=== PATIENT | male | born 1930 | race Caucasian/White ===

== ENCOUNTER 2016-05-31 13:07 | Outpatient (CLI) | payer MEDICARE, BC ==
[2016-05-31 14:03] LABS: ALT (SGPT) 15 U/L (0-55); AST (SGOT) 15 U/L (5-34); Alkaline Phosphatase 92 U/L (40-150); Anion Gap 13 mmol/L (10-20); BUN (Urea Nitrogen) 18 mg/dL (8.4-25.7); Bilirubin, Total 1.6 mg/dL (0.2-1.2); Calc. Creatinine Clearance 0 mL/min (70-130); Calcium 9.2 mg/dL (7.8-10.44); Carbon Dioxide 26 mmol/L (23-31); Chloride 105 mmol/L (98-107); Estimated GFR-MDRD 79; Globulin 2.4 g/dL (2.4-3.5); LDL Cholesterol, Calculated 69 mg/dL; Protein, Total 6.6 g/dL (5.8-8.1)
[2016-05-31 18:11] LABS: #Basophils 0.1 thou/uL (0.0-0.2); #Eosinphils 0.2 thou/uL (0.0-0.7); #Lymphocytes 1.9 thou/uL (1.20-3.40); #Monocytes 0.8 thou/uL (0.11-0.59); #Neutrophils 6.9 thou/uL (1.40-6.50); %Basophils 1.3 % (0.0-1.0); %Eosinophils 2.1 % (0.0-10.0); %Monocytes 8.4 % (0.0-10.0); Hematocrit 42.2 % (42.0-52.0); Mean Platelet Volume 7.6 fL (7.4-10.4); Red Blood Cell (RBC) Count 4.76 mill/uL (4.70-6.10); White Blood Cell (WBC) Count 9.9 thou/uL (4.8-10.8)
[2016-05-31 19:42] LABS: Hemoglobin A1c 6.4 % (4.0-6.0)
== END 2016-05-31 13:08 | disposition home or self-care (01) ==
LOC: HPCALD 13:07
PROVIDERS: ATTEND Family Medicine
DX: E11.9 Type 2 diabetes mellitus without complications (principal); I10 Essential (primary) hypertension
CPT/HCPCS: 36415; 80053; 80061; 83036; 85025

== ENCOUNTER 2016-07-03 03:34 | Emergency (ER) | payer MEDICARE, BC ==
[2016-07-03] MEDS ORDERED: Ondansetron HCl/PF 4 MG/2 ML Vial ONE (03:59)
[2016-07-03] MEDS ORDERED: Famotidine 20 MG TAB ONE (03:59)
[2016-07-03] MEDS ORDERED: Famotidine In NaCl 20 mg/50 ml Premix Bag ONE (04:00)
[2016-07-03 04:05] LABS: #Basophils 0.1 thou/uL (0.0-0.2); #Eosinphils 0.1 thou/uL (0.0-0.7); #Lymphocytes 1.5 thou/uL (1.20-3.40); #Monocytes 0.9 thou/uL (0.11-0.59); #Neutrophils 13.4 thou/uL (1.40-6.50); %Basophils 0.8 % (0.0-1.0); %Eosinophils 0.4 % (0.0-10.0); %Monocytes 5.4 % (0.0-10.0); Hematocrit 43.5 % (42.0-52.0); Mean Platelet Volume 7.5 fL (7.4-10.4); White Blood Cell (WBC) Count 15.9 thou/uL (4.8-10.8)
[2016-07-03 04:20] LABS: ALT (SGPT) 13 U/L (0-55); AST (SGOT) 14 U/L (5-34); Alkaline Phosphatase 92 U/L (40-150); Anion Gap 15 mmol/L (10-20); BUN (Urea Nitrogen) 11 mg/dL (8.4-25.7); Bilirubin, Total 1.1 mg/dL (0.2-1.2); Calc. Creatinine Clearance 0 mL/min (70-130); Carbon Dioxide 24 mmol/L (23-31); Chloride 103 mmol/L (98-107); Estimated GFR-MDRD Greater than 90; Lipase 27 U/L (8-78); Protein, Total 7.2 g/dL (5.8-8.1)
[2016-07-03 04:28] LABS: Troponin I Less than 0.010 ng/mL (< 0.028)
[2016-07-03] MEDS ORDERED: Fentanyl 100 MCG/2 ML VIAL ONE ×2 (04:34→06:10)
[2016-07-03 05:57] LABS: Bilirubin Negative (Negative); Blood, Urine Trace (Negative); Glucose, Urine (Dipstick) 250 mg/dL (Negative); Ketone, Urine Negative (Negative); Nitrite Negative (Negative); Protein, Urine (Dipstick) Negative (Neg-Trace)
[2016-07-03] MEDS ORDERED: Piperacillin/Tazobactam 3.375 GM VIAL ONE (05:59)
[2016-07-03 06:00] LABS: Bacteria/HPF 1+ HPF (None Seen); RBC/HPF 0-3 HPF (0-3); Squamous Epithelial 0-3 HPF (0-3); WBC/HPF None Seen HPF (0-3)
[2016-07-03] MEDS ORDERED: Sodium Chloride 0.9% 100 ML ONE (06:00)
[2016-07-03] MEDS ORDERED: Iopamidol 370 76% 100 ML VIAL ONE (09:00)
--- NOTE | 2016-07-03 12:28 | CT ---
PRELIMINARY REPORT/[facility]/EMERGENCY AFTER HOURS PROCEDURE: EXAM: CT Abdomen and Pelvis With Intravenous Contrast. CLINICAL HISTORY: 86 years old, male; Pain; Abdominal pain; Generalized; Patient HX: Pt complains of generalized abdom inal pain with nausea and vomiting since 1999 yesterday. ; TECHNIQUE: Axial computed tomography images of the abdomen and pelvis with intravenous contrast. Coronal reformatted images were created and reviewed. CONTRAST: 93 mL of ISOVUE 370 administered intravenously. COMPARISON: No relevant prior studies available. FINDINGS: Small left pleural effusion. The lung bases otherwise appear essentially clear. Prominent coronary artery calcifications. Old/healed right lower rib fractures. 19 mm calcified gallstone within the gallbladder. Mild gallbladder wall thickening/edema. Gallbladder appears somewhat distended, transverse diameter of about 5 cm. No biliary tree dilation. Unremarkable appearance of the liver, spleen, kidneys, adrenal glands, and pancreas. No free air, ascites, or bowel distention. Prominent aortic vascular calcifications. No evidence for abdominal aortic aneurysm. Areas of nonspecific, predominantly linear calcifications in the central left mesentery. A few borderline prominent mesenteric lymph nodes, no prominent soft tissue mass or surrounding fibr otic reaction. CT appearance is not specific. 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 Findings related to carcinoid tumor or treated lymphoma probably less likely. Please correlate clini hero. Eventual comparison with any available prior exams will be helpful. No retroperitoneal adenopathy. CT pelvis: The appendix is visualized and appears normal. There are no CT findings to strongly suggest diverticulitis. No abnormal mass or fluid collection in the pelvis. 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 IMPRESSION: Cholelithiasis, with mild gallbladder distention and mild wall thickening/edema. No free air or bowel distention. No evidence for bowel obstruction. Normal appendix. No diverticulitis. Nonspecific calcifications in the central left mesentery. See above details/discussion. Small left pleural effusion. Other findings discussed above. Thank you for allowing us to participate in the care of your patient. Dictated and Authenticated by: Sunny Ho MD 07/03/2016 5:50 AM Central Time ([place] \T\ [place]) FINAL REPORT CT ABDOMEN AND PELVIS WITH CONTRAST: Date: 07/03/[address] of the abdomen and pelvis was performed for evaluation of generalized abdominal pain, naus ea, and vomiting. Axial slices were acquired after a bolus of IV contrast. No oral contrast was give n. Coronal reconstruction were then done. Comparison is made with a 08/20/15 CT done at this institu tion. FINDINGS: There is a small to medium size left pleural effusion present, which is a new finding. There is a li ttle compressive atelectasis of the lower lobes, but no lobar consolidation was seen. Dense coronary artery calcifications are evident as usual. There is no sign of pericardial fluid. The liver, spleen, pancreas, and adrenal glands are unremarkable in appearance. The gallbladder is d istended, measuring about 10.0 cm long and 5.0 cm wide. There is a large gallstone within it as usua l. The wall of the gallbladder seems edematous and thickened. The possibility of cholecystitis is ra ised. These findings are different than what was seen in 2016. The kidneys showed no mass or hydrone phrosis. Calcification seen in the abdomen aorta, but there is no aneurysm. The bowel is nondistended with no sign of obstruction. A few scattered diverticula are present witho ut findings of diverticulitis. There is no free air or free fluid. There is a curious area of calcif ication in the mesentery just to the left of center at a level at and below the lower margins of the kidneys. In retrospect, this is present on the 2016 study, but it was mostly obscured by oral contr ast that was given at the time. It really does not seem to have changed much. While entities such as sclerosing mesenteritis might be considered, the fact that it has been present for a year and not r eally changed decreases its probable importance. I am not overly impressed by an excess of mesenteri c nodes. CT of the pelvis shows no pelvic masses, fluid collections, or inflammatory changes. The urinary char dder is rather distended. 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 Degenerative changes are prominent throughout the lumbar spine. There is probably a hemangioma in the L4 vertebra. IMPRESSION: 1. Distended gallbladder with gallstone and some mild thickening of the gallbladder wall. Cholecyst itis is suspected. 2. Small left pleural effusion of unknown etiology. 3. More chronic findings as listed above. Report in agreement with preliminary reading by Andrea. POS: HOME
== END 2016-07-03 07:10 | disposition short-term general hospital (02) ==
LOC: BURERS 03:34
DX: K80.00 Calculus of gallbladder with acute cholecystitis without obstruction (principal); I25.2 Old myocardial infarction; I10 Essential (primary) hypertension; I48.91 Unspecified atrial fibrillation; F17.220 Nicotine dependence, chewing tobacco, uncomplicated
CPT/HCPCS: 74177; 80053; 81003; 81015; 82553; 83690; 84484; 85025; 96361; 96365; 96375; 96376; J2405; J2543; J3010; J7050

== ENCOUNTER 2016-11-29 10:34 | Outpatient (CLI) | payer MEDICARE ==
[2016-11-29 11:53] LABS: #Basophils 0.1 thou/uL (0.0-0.2); #Eosinphils 0.3 thou/uL (0.0-0.7); #Lymphocytes 2.3 thou/uL (1.20-3.40); #Monocytes 0.8 thou/uL (0.11-0.59); #Neutrophils 6.2 thou/uL (1.40-6.50); %Basophils 1.1 % (0.0-1.0); %Eosinophils 3.3 % (0.0-10.0); %Lymphocytes 23.6 % (21.0-51.0); %Monocytes 8.4 % (0.0-10.0); %Neutrophils 63.6 % (42.0-75.0); Hemoglobin 14.4 g/dL (14.0-18.0); Mean Corpuscular HGB CONC 34.1 g/dL (32.0-36.0); Mean Corpuscular Volume 87.8 fl (80.0-94.0); Mean Platelet Volume 8.5 fL (7.4-10.4); Platelet Count 175 thou/uL (130-400); RBC Distribution Width 12.4 % (11.5-14.5); White Blood Cell (WBC) Count 9.7 thou/uL (4.8-10.8)
[2016-11-29 11:59] LABS: ALT (SGPT) 17 U/L (8-55); AST (SGOT) 18 U/L (5-34); Albumin 4.1 g/dL (3.4-4.8); Alkaline Phosphatase 104 U/L (40-150); Anion Gap 15 mmol/L (10-20); BUN (Urea Nitrogen) 13 mg/dL (8.4-25.7); Bilirubin, Total 2.1 mg/dL (0.2-1.2); Calc. Creatinine Clearance 0 mL/min (70-130); Calcium 8.7 mg/dL (7.8-10.44); Carbon Dioxide 27 mmol/L (23-31); Cardiac Risk 4.2 (Less than 4.5); Chloride 105 mmol/L (98-107); Cholesterol 131 mg/dl (< 200 Desired); Estimated GFR-MDRD 90; Globulin 2.4 g/dL (2.4-3.5); Glucose 118 mg/dL (83-110); HDL Cholesterol 31 mg/dL (>60 Neg Risk); LDL Cholesterol, Calculated 82 mg/dL; Potassium 3.9 mmol/L (3.5-5.1); Protein, Total 6.5 g/dL (5.8-8.1); Sodium 143 mmol/L (136-145); Triglycerides 92 mg/dL (Less than 150)
[2016-11-29 12:14] LABS: PSA-Asymptomatic (SCREENING) 0.41 ng/mL (0-4.0); Thyroid Stimulating Hormone 2.9433 uIU/mL (0.35-4.94)
[2016-11-29 12:17] LABS: Hemoglobin A1c 6.9 % (4.0-6.0)
== END 2016-11-29 10:35 | disposition home or self-care (01) ==
LOC: HPCALD 10:34
PROVIDERS: ATTEND Family Medicine
DX: Z12.5 Encounter for screening for malignant neoplasm of prostate (principal); E11.9 Type 2 diabetes mellitus without complications; I10 Essential (primary) hypertension
CPT/HCPCS: 36415; 80053; 80061; 83036; 84443; 85025; G0103

== ENCOUNTER 2016-12-16 18:37 | Emergency (ER) | payer MEDICARE ==
[2016-12-16 19:25] LABS: #Basophils 0.1 thou/uL (0.0-0.2); #Eosinphils 0.2 thou/uL (0.0-0.7); #Lymphocytes 1.7 thou/uL (1.20-3.40); #Monocytes 0.7 thou/uL (0.11-0.59); #Neutrophils 6.9 thou/uL (1.40-6.50); %Eosinophils 2.3 % (0.0-10.0); %Lymphocytes 17.6 % (21.0-51.0); %Monocytes 7.2 % (0.0-10.0); %Neutrophils 71.9 % (42.0-75.0); Hemoglobin 13.8 g/dL (14.0-18.0); Mean Corpuscular HGB CONC 33.8 g/dL (32.0-36.0); Mean Corpuscular Hemoglobin 29.3 pg (27.0-31.0); Mean Corpuscular Volume 86.5 fl (80.0-94.0); Mean Platelet Volume 7.9 fL (7.4-10.4); Platelet Count 187 thou/uL (130-400); RBC Distribution Width 12.3 % (11.5-14.5); Red Blood Cell (RBC) Count 4.73 mill/uL (4.70-6.10); White Blood Cell (WBC) Count 9.6 thou/uL (4.8-10.8)
[2016-12-16] MEDS ORDERED: Promethazine HCl 25 MG/ML VIAL ONE (19:25)
[2016-12-16 19:43] LABS: ALT (SGPT) 14 U/L (8-55); AST (SGOT) 15 U/L (5-34); Albumin 3.8 g/dL (3.4-4.8); Alkaline Phosphatase 94 U/L (40-150); Anion Gap 14 mmol/L (10-20); BUN (Urea Nitrogen) 12 mg/dL (8.4-25.7); Bilirubin, Total 1.5 mg/dL (0.2-1.2); Calc. Creatinine Clearance 0 mL/min (70-130); Calcium 8.7 mg/dL (7.8-10.44); Carbon Dioxide 23 mmol/L (23-31); Chloride 106 mmol/L (98-107); Estimated GFR-MDRD Greater than 90; Globulin 2.6 g/dL (2.4-3.5); Glucose 186 mg/dL (83-110); Potassium 3.8 mmol/L (3.5-5.1); Protein, Total 6.4 g/dL (5.8-8.1); Sodium 139 mmol/L (136-145)
[2016-12-16 20:28] LABS: Bilirubin Negative (Negative); Blood, Urine Trace (Negative); Clarity Clear (Clear); Glucose, Urine (Dipstick) 100 mg/dL (Negative); Leukocyte Negative (Negative); Nitrite Negative (Negative); Protein, Urine (Dipstick) Negative (Neg-Trace); pH, Urine 5.5 (5.0-9.0)
[2016-12-16 20:36] LABS: RBC/HPF 0-3 HPF (0-3); WBC/HPF 0-3 HPF (0-3)
[2016-12-16 20:37] LABS: Bacteria/HPF None Seen HPF (None Seen); Crystals/HPF None Seen HPF (Negative); Hyaline Casts/LPF NONE SEEN LPF (0-3 Hyaline); Other Casts/LPF None Seen LPF (0-3 Hyaline); Oval Fat Bodies/HPF None Seen HPF (None Seen); Renal Epithelial None Seen HPF (0-3); Sperm/HPF None Seen HPF (None Seen); Squamous Epithelial 0-3 HPF (0-3); Transitional Epithelial NONE SEEN HPF (0-3); Trichomonas/HPF None Seen HPF (None Seen); Yeast-All Forms None Seen HPF (None Seen)
== END 2016-12-16 20:47 | disposition home or self-care (01) ==
LOC: BURERS 18:37
DX: R42 Dizziness and giddiness (principal); I25.2 Old myocardial infarction; E11.9 Type 2 diabetes mellitus without complications; I10 Essential (primary) hypertension; I48.91 Unspecified atrial fibrillation; F17.220 Nicotine dependence, chewing tobacco, uncomplicated
CPT/HCPCS: 80053; 81003; 81015; 85025; 96372; J2550

== ENCOUNTER 2018-05-30 07:01 | Emergency (ER) | payer MEDICARE, BC ==
[2018-05-30] MEDS ORDERED: Adacel (T-DAP) 0.5 ML SYRINGE ONE (07:24)
[2018-05-30] MEDS ORDERED: Acetaminophen 325 MG TAB ONE (07:51)
--- NOTE | 2018-05-30 08:49 | CT ---
CT OF THE BRAIN WITHOUT CONTRAST: DATE: 05/30/2018. FINDINGS: Spiral CT of the brain was performed for evaluation following a fall. Axial slices were acquired, th en coronal and sagittal reconstructions were done. The ventricles are normal in size and show no shift. No intracranial bleeding or extraaxial hematoma was seen. There is no sign of mass, edema, or stroke. There is tremendous soft tissue swelling on the right side of the nose beneath the orbits. Additiona lly, one sees mucosal thickening and air fluid levels in many of the sinuses. See CT face exam to jessica albright. Visible on this study is a small undisplaced fracture of the right nasal bone. IMPRESSION: 1. No acute intracranial findings. 2. Tremendous soft tissue hematoma and some soft tissue air beneath the right orbit and near the rig ht side of the nose. There is an undisplaced nasal fracture adjacent to this. See CT of the face to follow. POS: HOME
--- NOTE | 2018-05-30 09:06 | CT ---
CT OF THE FACIAL BONES: DATE: 05/30/2018. FINDINGS: Spiral CT of the face was performed following trauma. Axial slices were acquired, then coronal and s agittal reconstructions were done. There is an undisplaced fracture of the right nasal bone. Adjacent to it, there was a large ovoid ac hanna hematoma measuring about 3.6 x 2.1 cm There is soft tissue swelling around this and an impressiv e amount of soft tissue air. In spite of this, the right globe appears intact and no orbital fractur es were appreciated. No sinus fractures were appreciated. There is marked mucosal thickening and pa rticularly the left ethmoid air cells and air fluid levels are suggested in the left frontal sinus an d perhaps left maxillary sinus. Mucosal thickening is prominent in the sphenoid sinus, but there is no dependent fluid here. The zygomatic arches appear intact. The retroorbital areas were unremarkab le. IMPRESSION: 1. Undisplaced right nasal fracture. 2. Adjacent soft tissue hematoma, swelling, and soft tissue air without clear evidence of fracture o f any sinus. 3. Severe sinus disease consisting of marked mucosal thickening and in some cases air fluid levels. The left side is predominantly involved and there is also mucosal thickening of the sphenoid sinus. POS: HOME
== END 2018-05-30 08:23 | disposition home or self-care (01) ==
LOC: BURERS 07:01
DX: S02.2XXA Fracture of nasal bones, initial encounter for closed fracture (principal); S01.21XA Laceration without foreign body of nose, initial encounter; S01.81XA Laceration without foreign body of other part of head, initial encounter; S05.11XA Contusion of eyeball and orbital tissues, right eye, initial encounter; I25.2 Old myocardial infarction; E11.9 Type 2 diabetes mellitus without complications; I10 Essential (primary) hypertension; I48.91 Unspecified atrial fibrillation; F17.220 Nicotine dependence, chewing tobacco, uncomplicated; W06.XXXA Fall from bed, initial encounter
CPT/HCPCS: 12011; 70450; 70486; 90471; 90715

== ENCOUNTER 2018-12-26 00:09 | Emergency (ER) | payer MEDICARE, BC ==
[2018-12-26 00:51] LABS: #Basophils 0.1 thou/uL (0.0-0.2); #Eosinphils 0.3 thou/uL (0.0-0.7); #Lymphocytes 1.9 thou/uL (1.20-3.40); #Monocytes 0.9 thou/uL (0.11-0.59); #Neutrophils 7.2 thou/uL (1.40-6.50); %Basophils 1.1 % (0.0-1.0); %Eosinophils 2.7 % (0.0-10.0); %Lymphocytes 18.6 % (21.0-51.0); %Monocytes 8.7 % (0.0-10.0); %Neutrophils 68.9 % (42.0-75.0); Hemoglobin 13.7 g/dL (14.0-18.0); Mean Corpuscular HGB CONC 32.1 g/dL (32.0-36.0); Mean Corpuscular Hemoglobin 27.7 pg (27.0-31.0); Mean Corpuscular Volume 86.4 fL (78.0-98.0); Mean Platelet Volume 9.5 fL (7.4-10.4); Platelet Count 147 thou/uL (130-400); RBC Distribution Width 13.9 % (11.5-14.5); Red Blood Cell (RBC) Count 4.95 mill/uL (4.70-6.10); White Blood Cell (WBC) Count 10.4 thou/uL (4.8-10.8)
[2018-12-26 00:57] LABS: ALT (SGPT) 15 U/L (8-55); AST (SGOT) 16 U/L (5-34); Alkaline Phosphatase 97 U/L (40-150); Anion Gap 13 mmol/L (10-20); BUN (Urea Nitrogen) 13 mg/dL (8.4-25.7); Bilirubin, Total 1.7 mg/dL (0.2-1.2); Calc. Creatinine Clearance 0 mL/min (70-130); Calcium 9.2 mg/dL (7.8-10.44); Carbon Dioxide 25 mmol/L (23-31); Chloride 108 mmol/L (98-107); Estimated GFR-MDRD 76; Globulin 2.6 g/dL (2.4-3.5); Glucose 162 mg/dL (83-110); Potassium 3.7 mmol/L (3.5-5.1); Protein, Total 6.6 g/dL (5.8-8.1); Sodium 142 mmol/L (136-145)
[2018-12-26 01:15] LABS: INR-International Normal Ratio 1.3; Prothrombin Time 15.8 SEC (12.0-14.7)
[2018-12-26 01:16] LABS: CKMB 1.9 ng/mL (0-6.6)
[2018-12-26] MEDS ORDERED: Furosemide 40 MG/4 ML VIAL ONE (01:18)
--- NOTE | 2018-12-26 07:28 | CT ---
PRELIMINARY REPORT/[facility]/EMERGENCY AFTER HOURS PROCEDURE: EXAM: CT Angiography Chest With Contrast EXAM DATE/TIME: 12/26/2018 1:31 AM CLINICAL HISTORY: 88 years old, male; Patient HX: Dyspnea, elev d dimer TECHNIQUE: Imaging protocol: Axial computed tomographic angiography images of the chest with intravenous contras t using CT angiography protocol. Coronal and sagittal reformatted images were created and reviewed. 3D rendering: MIP reconstructed images were created and reviewed. Radiation optimization: All CT scans at this facility use at least one of these dose optimization therese hniques: automated exposure control; mA and/or kV adjustment per patient size (includes targeted exam s where dose is matched to clinical indication); or iterative reconstruction. Contrast material: ISOVUE 370;Contrast volume: 100 ml;Contrast route: LT AC; COMPARISON: No relevant prior studies available. FINDINGS: Limitations: There is respiratory motion artifact. Pulmonary arteries: There is no evidence of peripheral filling defects within the pulmonary arterial circulation to suggest pulmonary embolism. Aorta: Unremarkable. No aortic aneurysm. No aortic dissection. Lungs: There is mild diffuse interstitial edema. Pleural space: There are moderate bilateral pleural effusions. Heart: Unremarkable. No cardiomegaly. No pericardial effusion. Lymph nodes: Unremarkable. No enlarged lymph nodes. Bones/joints: Unremarkable. No acute fracture. Soft tissues: Unremarkable. IMPRESSION: 1. There is no CT evidence of acute pulmonary embolism. 2. There are moderate bilateral pleural effusions. Thank you for allowing us to participate in the care of your patient. Dictated and Authenticated by: Sunny Arciniega MD 12/26/2018 1:54 AM Central Time ([place] & [place]) FINAL REPORT CT ANGIO CHEST: Date: 12/26/[address] of the chest was performed after a bolus of IV contrast. After obtaining axial slices, MIP reconstructions in various planes were obtained. FINDINGS: There is excellent opacification of the pulmonary arteries. No filling defects were seen to suggest e mboli. Very tiny peripheral emboli might not be seen on this study. The heart is mildly enlarged. No pericardial effusion seen. There is no sign of mediastinal mass. A small amount of nodes were seen in the mediastinum, none of which were significant in size. There is diffuse pulmonary edema and moderate sized bilateral pleural effusions. The patient may be i n congestive heart failure. Dense coronary artery calcifications are apparent. There is a rounded soft tissue elevation at the ken and the distal trachea measuring 1.6 cm in siz e. I do not see this on the prior scan. I do not know if there is an actual mass here or if there cou ld be a collection of respiratory secretions causing this. Other incidental findings include severe d egenerative change in the spine. The visible upper abdominal structures showed no acute findings, exc ept there is considerable stranding around the left kidney which may or may not be significant. IMPRESSION: 1. No evidence of pulmonary embolism. 2. Pulmonary edema and bilateral pleural effusions. Some degree of congestive failure may be present . 3. Small soft tissue elevation of the distal trachea at the ken. See discussion above. Significan ce unknown. 4. Considerable stranding around the left kidney, which may or may not be significant. Report in agreement with the preliminary report by Andrea. POS: HOME
--- NOTE | 2018-12-26 08:52 | RAD ---
PORTABLE CHEST: Date: 12/26/18 The heart is enlarged. There is diffuse pulmonary edema. There is probably pleural fluid as well. IMPRESSION: CHF. POS: HOME
== END 2018-12-26 02:36 | disposition short-term general hospital (02) ==
LOC: BURERS 00:09
DX: I11.0 Hypertensive heart disease with heart failure (principal); I50.32 Chronic diastolic (congestive) heart failure; I25.2 Old myocardial infarction; E11.9 Type 2 diabetes mellitus without complications; I48.91 Unspecified atrial fibrillation; I25.10 Atherosclerotic heart disease of native coronary artery without angina pectoris; Z79.82 Long term (current) use of aspirin; Z79.899 Other long term (current) drug therapy
CPT/HCPCS: 71045; 71275; 80053; 82553; 83880; 84484; 85025; 85379; 85610; 85730; 93005; 94760; 96374; J1940

== ENCOUNTER 2019-03-08 13:15 | Emergency (ER) | payer MEDICARE, BC ==
[2019-03-08] MEDS ORDERED: Acetaminophen/Codeine 30-300mg Tablet ONE (13:43)
--- NOTE | 2019-03-08 20:30 | RAD ---
LEFT WRIST THREE VIEWS: 03/08/19 No acute fracture was seen. An old healed fracture is seen at the base of the first metacarpal along with some arthritic changes in the first carpometacarpal joint. The other carpal bones appear intact . There is calcification of the triangular fibrocartilage, sometimes found in various deposition dise ases. IMPRESSION: Chronic changes but no acute finding. POS: HOME
== END 2019-03-08 14:00 | disposition home or self-care (01) ==
LOC: BURERS 13:15
DX: S63.502A Unspecified sprain of left wrist, initial encounter (principal); I11.0 Hypertensive heart disease with heart failure; I25.2 Old myocardial infarction; I50.32 Chronic diastolic (congestive) heart failure; E11.9 Type 2 diabetes mellitus without complications; I48.91 Unspecified atrial fibrillation; I25.10 Atherosclerotic heart disease of native coronary artery without angina pectoris; E78.5 Hyperlipidemia, unspecified; N40.0 Benign prostatic hyperplasia without lower urinary tract symptoms; F17.220 Nicotine dependence, chewing tobacco, uncomplicated; Z79.01 Long term (current) use of anticoagulants; Z79.82 Long term (current) use of aspirin; Z79.84 Long term (current) use of oral hypoglycemic drugs; Z79.899 Other long term (current) drug therapy; W01.0XXA Fall on same level from slipping, tripping and stumbling without subsequent striking against object, initial encounter
CPT/HCPCS: 29125

== ENCOUNTER 2019-07-02 13:40 | Emergency (ER) | payer MEDICARE ==
[2019-07-02 14:41] LABS: #Basophils 0.1 thou/uL (0.0-0.2); #Eosinphils 0.2 thou/uL (0.0-0.7); #Lymphocytes 2.3 thou/uL (1.20-3.40); #Monocytes 0.9 thou/uL (0.11-0.59); #Neutrophils 6.4 thou/uL (1.40-6.50); %Eosinophils 2.2 % (0.0-10.0); %Lymphocytes 22.9 % (21.0-51.0); %Monocytes 8.7 % (0.0-10.0); %Neutrophils 65.2 % (42.0-75.0); Hemoglobin 13.3 g/dL (14.0-18.0); Mean Corpuscular Hemoglobin 29.2 pg (27.0-31.0); Mean Corpuscular Volume 85.8 fL (78.0-98.0); Mean Platelet Volume 8.9 fL (7.4-10.4); Platelet Count 156 thou/uL (130-400); RBC Distribution Width 13.8 % (11.5-14.5); Red Blood Cell (RBC) Count 4.55 mill/uL (4.70-6.10); White Blood Cell (WBC) Count 9.8 thou/uL (4.8-10.8)
[2019-07-02 14:53] LABS: ALT (SGPT) 14 U/L (8-55); AST (SGOT) 15 U/L (5-34); Albumin 3.9 g/dL (3.4-4.8); Alkaline Phosphatase 117 U/L (40-110); Anion Gap 12 mmol/L (10-20); BUN (Urea Nitrogen) 16 mg/dL (8.4-25.7); Bilirubin, Total 1.7 mg/dL (0.2-1.2); CK (CPK) 66 U/L (30-200); Calc. Creatinine Clearance 0 mL/min (70-130); Calcium 8.7 mg/dL (7.8-10.44); Carbon Dioxide 28 mmol/L (23-31); Chloride 104 mmol/L (98-107); Estimated GFR-MDRD 82; Globulin 2.6 g/dL (2.4-3.5); Glucose 98 mg/dL (83-110); Potassium 3.8 mmol/L (3.5-5.1); Protein, Total 6.5 g/dL (5.8-8.1); Sodium 140 mmol/L (136-145)
[2019-07-02 15:10] LABS: CKMB 1.9 ng/mL (0-6.6)
[2019-07-02] MEDS ORDERED: Diltiazem 125 MG/25 ML ONE (16:00)
--- NOTE | 2019-07-02 17:16 | RAD ---
Chest AP view INDICATION: Tachycardia COMPARISON: December 26, 2018 FINDINGS: Lungs:No consolidation is evident. Chronic lung changes are similar. Cardiac silhouette:There is mild cardiomegaly. Pulmonary vasculature:Normal Pleural spaces:No pleural effusion or pneumothorax is demonstrated. Upper abdomen:No abnormality seen. Osseous structures: No acute osseous abnormality. Additional findings:None. IMPRESSION: Mild cardiomegaly without evidence of cardiac decompensation. Stable chronic lung changes .
== END 2019-07-02 17:15 | disposition short-term general hospital (02) ==
LOC: BURERS 13:40
DX: I95.9 Hypotension, unspecified (principal); R00.0 Tachycardia, unspecified; I25.2 Old myocardial infarction; E11.9 Type 2 diabetes mellitus without complications; I48.91 Unspecified atrial fibrillation; I25.10 Atherosclerotic heart disease of native coronary artery without angina pectoris; E78.5 Hyperlipidemia, unspecified; N40.0 Benign prostatic hyperplasia without lower urinary tract symptoms; I11.0 Hypertensive heart disease with heart failure; I50.32 Chronic diastolic (congestive) heart failure; F17.220 Nicotine dependence, chewing tobacco, uncomplicated; Z79.899 Other long term (current) drug therapy; Z79.01 Long term (current) use of anticoagulants; Z79.82 Long term (current) use of aspirin; Z79.84 Long term (current) use of oral hypoglycemic drugs
CPT/HCPCS: 71045; 80053; 82550; 82553; 83880; 84443; 84484; 85025; 93005; 96361; 96365; 96376